=== PATIENT | male | born 1945 | race African-American/Black ===

== ENCOUNTER 2022-03-13 18:39 | Emergency (ER) | payer OTHER ==
[~2022-03-13 18:39] MED LIST: ASPIRIN CHEWABL81 MG PO; ASPIRIN EC81 MG PO; CHILDREN'S ASPI81 MG PO; COZAAR 100MG T100 MG PO; FEOSOL325 MG PO; FLOMAX0.4 MG PO; LASIX20 MG PO; LIPITOR40 MG PO; MELOXICAM15 MG PO; MOBIC15 MG PO; NEURONTIN300 MG PO; NORVASC 10MG TA10 MG PO; PERCOCET 5-3251 EACH PO; POTASSIUM CHLO10 MEQ PO; PRILOSEC20 MG PO; TOPROL XL 25MG25 MG PO; TRAMADOL HCL50 MG PO; VALSARTAN320 MG PO; VENTOLIN HFA18 GM INH; VITAMIN D250 MCG PO
[2022-03-13 19:30] LABS: BASOPHIL 0.5 % (0-2); EOSINOPHIL 2.2 % (0-7); HCT 45.9 % (42.0-52.0); HGB 15.3 g/dl (13.2-18.0); LYMPHOCYTE 19.4 % (15-48); MCH 28.8 pg (25.0-31.0); MCHC 33.3 g/dL (32.0-36.0); MCV 86.3 fL (78.0-100.0); MONOCYTE 7.7 % (0-12); MPV 9.6 fL (6.0-9.5); NEUTROPHIL 69.9 % (41-80); NRBC 0; PLT 224 K/uL (150-400); RBC 5.32 M/uL (4.70-6.00); RDW 13.3 % (11.5-14.0); WBC 6.2 K/uL (4.0-10.5)
[2022-03-13 19:35] LABS: INR 1.09 (0.9-1.2); PROTHROMBIN TIME 13.5 SECONDS (11.8-13.4); PTT 33.7 SECONDS (24.4-34.7)
[2022-03-13 19:50] LABS: ALBUMIN 3.7 g/dL (3.4-5.0); BILIRUBIN - TOTAL 0.5 mg/dL (0.2-1.0); BUN/CREAT RATIO (CALC) 14.2 RATIO; CREATININE 1.06 mg/dL (0.67-1.17); GLOBULIN (CALCULATION) 3.9 g/dL; POTASSIUM 3.3 mmol/L (3.5-5.1); TOTAL PROTEIN 7.6 g/dL (6.4-8.2)
[2022-03-13] MEDS ORDERED: ULTRAM50 MG PO (23:11)
== END 2022-03-13 23:25 | disposition home or self-care (01) ==
LOC: FER 18:39
PROVIDERS: Emergency Medicine
DX: R07.89 Other chest pain (principal); F11.23 Opioid dependence with withdrawal; I10 Essential (primary) hypertension; J44.9 Chronic obstructive pulmonary disease, unspecified; Z87.891 Personal history of nicotine dependence
CPT/HCPCS: 36415; 71045; 80053; 84484; 85025; 85610; 85730; 93005; J3490